=== PATIENT | female | born 1960 | race Caucasian/White ===

== ENCOUNTER 2022-03-12 12:53 | Emergency (ER) | payer OTHER ==
[~2022-03-12] VITALS: Ht 165.1 cm; Wt 80.9 kg
[2022-03-12 13:02] VITALS: BP 146/85
--- NOTE | 2022-03-12 13:06 | NUR ---
PT AMB TO BED 9.
[2022-03-12] MEDS ORDERED: FLUORESCEIN OPTH STRIP 1 MG OP ONE (13:25)
[2022-03-12] MEDS ORDERED: TETRACAINE HCL/PF 0.5% OPTH 4 ML BTL OP ONE (13:25)
[2022-03-12] MEDS ORDERED: POLY10SO OP (13:37)
--- NOTE | 2022-03-12 13:41 | NUR ---
61/F PRESENTS TO ED WITH C/O EYE "IRRITATION" X1 HOUR. 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 PATIENT REPORTS IRRITATION AND EYE DRAINAGE, REPORTS RINSING HER EYES OUT PRIOR TO ARRIVAL BUT REPORTS NO RELIEF. PATIENT DENIES HEADACHE, DIZZINESS OR VISION CHANGES.
--- NOTE | 2022-03-12 13:56 | NUR ---
Patient discharged with v/s stable. Written and verbal after care instructions ABOUT CORNEAL ABRASION given and explained. Patient alert, oriented and verbalized understanding of instructions. Ambulatory with steady gait. All questions addressed prior to discharge. ID band removed. Patient advised to follow up with PMD. Rx of POLYTRIM EYE DROPS given. Patient educated on indication of medication including possible reaction and side effects. Opportunity to ask questions provided and answered.
== END 2022-03-12 13:56 | disposition home or self-care (01) ==
LOC: MED 12:53
DX: H57.12 Ocular pain, left eye (principal); Z79.2 Long term (current) use of antibiotics
CPT/HCPCS: 99283

== ENCOUNTER 2022-08-17 18:31 | Emergency (ER) | payer OTHER ==
[~2022-08-17] VITALS: Ht 165.1 cm; Wt 73.0 kg
[~2022-08-17 18:31] MED LIST: POLY10SO OP
[2022-08-17 19:26] VITALS: BP 119/90
--- NOTE | 2022-08-17 19:29 | NUR ---
PT TAKEN TO X RAY.
--- NOTE | 2022-08-17 19:39 | NUR ---
PT AMBULATED TO ER BED 7 WITH WALKER ASSISTANCE
--- NOTE | 2022-08-17 19:45 | NUR ---
61 y/o female bib self with c/o left ankle pain and swelling from s/p fall yesterday. Per patient, she took Ibuprofen. Patient has + bilateral pedal pulses. Patient has sensation, movement and color in bilateral feet. Medical History: Denies NKDA
--- NOTE | 2022-08-17 19:50 | NUR ---
Dr. Owen evaluating patient at bedside.
[2022-08-17] MEDS ORDERED: IBUP-2213 PO (21:03)
--- NOTE | 2022-08-17 21:10 | NUR ---
posterior short leg splint applied to L leg to support L ankle. secured with seven wraps. sensory, motor functions WNL before and after splint.
[2022-08-17 21:17] VITALS: BP 121/78
--- NOTE | 2022-08-17 21:17 | NUR ---
Chart checked and completed.
--- NOTE | 2022-08-17 21:17 | NUR ---
Patient discharged with v/s stable. Written and verbal after care instructions given. Patient alert, oriented and verbalized understanding of instructions. Wheel Chair Assisted with to car. All questions addressed prior to discharge. ID band removed. Patient advised to follow up with PMD. Rx of ibuprofen given. Opportunity to ask questions provided and answered.
== END 2022-08-17 21:17 | disposition home or self-care (01) ==
LOC: MED 18:31
DX: S82.62XA Displaced fracture of lateral malleolus of left fibula, initial encounter for closed fracture (principal); W18.30XA Fall on same level, unspecified, initial encounter; Y93.89 Activity, other specified; Y92.89 Other specified places as the place of occurrence of the external cause; Y99.8 Other external cause status
CPT/HCPCS: 29515; 73610; 99283